=== PATIENT | male | born 1950 | race Caucasian/White ===

== ENCOUNTER 2017-03-04 17:45 | Emergency (ER) | payer BC ==
--- NOTE | 2017-03-04 18:39 | RAD ---
INDICATION: Urinary retention. COMPARISON: There are no prior studies available for comparison. TECHNIQUE: Multiple real-time images of the kidneys were obtained. FINDINGS: The kidneys are normal in size shape and echogenicity. The right kidney measured 11.5 x 5.9 x 5.5 cm and the left kidney measured 11.3 x 5.2 x 5.2 cm. No hydronephrosis is seen. There is a cyst arising from the upper pole of the right kidney measuring 3.2 x 1.6 cm in size. There is a second cyst arising from the lower pole of the right kidney measuring 4.6 x 4.4 cm in size. The urinary bladder is decompressed with a Villatoro catheter. IMPRESSION: 1. NO EVIDENCE FOR HYDRONEPHROSIS. 2. RIGHT RENAL CYSTS NOTED.
[2017-03-04] MEDS ORDERED: Tamsulosin CAP* 0.4 MG PO ONE (18:44)
[2017-03-04 19:03] LABS: Hematocrit 41 % (42-52); Hemoglobin 13.7 g/dl (14.0-18.0); Mean Corpuscular HGB Conc 34 g/dl (31-36); Mean Corpuscular Hemoglobin 31 pg (27-31); Mean Corpuscular Volume 92 fL (80-94); Mean Platelet Volume 9 um3 (7.4-10.4); Red Blood Count 4.41 10^6/ul (4.0-5.4); Red Cell Distribution Width 13 % (10.5-15); White Blood Count 12.1 10^3/ul (3.5-10.8)
[2017-03-04 19:05] LABS: Add Diff/Slide Review? Slide Review Added; Comments Flag Yes
[2017-03-04 19:31] LABS: BUN/Creatinine Ratio 18.3 (8-20); Calcium 9.1 mg/dL (8.6-10.3); EGFR African American 73.9 (>60); EGFR Non-African American 57.4 (>60); Globulin 2.9 g/dL (2-4); Potassium 3.7 mmol/L (3.5-5.0); Total Protein 6.9 g/dL (6.4-8.9)
[2017-03-04 20:18] LABS: Urine Bacteria Absent (Absent); Urine Bilirubin Negative (Negative); Urine Glucose Negative (Negative); Urine Nitrite Negative (Negative)
[2017-03-04] MEDS ORDERED: Sulfamethox/Trimethoprim DS 800/160* TAB PO ONE (20:26)
[2017-03-04] MEDS ORDERED: Ciprofloxacin TAB* 500 MG PO ONE (20:32)
[2017-03-04 20:55] VITALS: BP 125/77
--- NOTE | 2017-03-06 15:21 | ED ---
Nitin Sandoval SooYoung, scribed for Chai Jane MD on 03/04/17 at 1804 . GI/ HPI - HPI Summary HPI Summary: A 67 y/o M presents to ED with c/o urinary retention for past approx 16 hours. Pt notes that he's been having a difficult time starting to urinate. Denies fever, chills, dysuria, abd pain. 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 Pert PMHx: BPH. No history of kidney stones or prostate infection. Non-smoker, daily drinker. Denies daily medications. - History of Current Complaint Chief Complaint: EDUrogenitalProblems Time Seen by Provider: 03/04/17 18:03 Stated Complaint: UN ABLE TO URNIATE Hx Obtained From: Patient, Family/Patent Solicitor - present Onset/Duration: Started Hours Ago - approx 0200 last night, Still Present Timing: Constant Severity: Moderate Current Severity: Severe Pain Intensity: 9 - out of 10 Associated Signs and Symptoms: Positive: Other: - pos: urinary retention. Negative: Fever, Dysuria, Chills, Abdominal Pain - Allergy/Home Medications Allergies/Adverse Reactions: Allergies Allergy/AdvReac Type Severity Reaction Status Date / Time No Known Allergies Allergy Verified 03/04/17 17:50 PMH/Surg Hx/FS Hx/Imm Hx Previously Healthy: No History: Reports: Hx Benign Prostatic Hyperplasia Infectious Disease History: No Infectious Disease History: Denies: Traveled Outside the [place] in Last 30 Days - Social History Occupation: Employed Full-time Lives: With Family Alcohol Use: Daily Alcohol Amount: 2 beers daily Hx Substance Use: No Substance Use Type: Reports: None Hx Tobacco Use: No Smoking Status (MU): Never Smoked Tobacco Review of Systems Negative: Fever, Chills Negative: Erythema Negative: Sore Throat Negative: Chest Pain Negative: Shortness Of Breath, Cough Negative: Abdominal Pain, Diarrhea, Nausea Positive: other - pos: urinary retention. Negative: dysuria, hematuria Negative: Myalgia, Edema Negative: Rash Neurological: Other - neg: dizziness All Other Systems Reviewed And Are Negative: Yes Physical Exam - Summary Physical Exam Summary: Constitutional: Well-developed, Well-nourished, Alert. (-) Distressed Skin: Warm, Dry HENT: Normocephalic; Atraumatic Eyes: Conjunctiva normal Neck: Musculoskeletal ROM normal neck. (-) JVD, (-) Stridor, (-) Tracheal deviation Cardio: Rhythm regular, rate normal, Heart sounds normal; Intact distal pulses; The pedal pulses are 2+ and symmetric. Radial pulses are 2+ and symmetric. (-) Murmur Pulmonary/Chest wall: Effort normal. (-) Respiratory distress, (-) Wheezes, (-) Rales Abd: Soft, (-) Tenderness, (-) Distension, (-) Guarding, (-) Rebound Musculoskeletal: (-) Edema Lymph: (-) Cervical adenopathy Neuro: Alert, Oriented x3 Psych: Mood and affect Normal Triage Information Reviewed: Yes Vital Signs On Initial Exam: Initial Vitals Temp Pulse Resp BP Pulse Ox 97.7 F 78 24 163/89 100 03/04/17 17:46 03/04/17 17:46 03/04/17 17:46 03/04/17 17:46 03/04/17 17:46 Vital Signs Reviewed: Yes - Adamaris Coma Scale Coma Scale Total: 15 Diagnostics - Vital Signs Vital Signs Temp Pulse Resp BP Pulse Ox 03/04/17 17:49 97.8 F 78 22 163/89 100 03/04/17 17:46 97.7 F 78 24 163/89 100 - Laboratory Result Diagrams: 03/04/17 18:50 03/04/17 18:50 Lab Statement: Any lab studies that have been ordered have been reviewed, and results considered in the medical decision making process. - Ultrasound No standard instances Ultrasound Interpretation: Positive (See Comments) - IMPRESSION: 1. NO EVIDENCE FOR HYDRONEPHROSIS. 2. RIGHT RENAL CYSTS NOTED. Ultrasound Interpretation Completed By: Radiologist Re-Evaluation - Re-Evaluation 1 Re-Evaluation Time: 19:29 Change: Improved Comment: Discussing labs and U/S results with pt. 2 Re-Evaluation Time: 20:36 Change: Improved Comment: Discussing UA results with pt and , plans to D/C home with Karolyn Hernández. Pt expressed wanting his catheter taken out. Explained risks to pt and . Pt voiced understanding, but prefers it being taken out. GIGU Course/Dx - Course Course Of Treatment: Pt is a 67 y/o M presenting with urinary retention for past approx 16 hours. Pt notes that he's been having a difficult time starting to urinate. Denies fever, chills, dysuria, abd pain. 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 Pert PMHx: BPH. No history of kidney stones or prostate infection. Non-smoker, daily drinker. Denies daily medications. Villatoro cather placed while in ED. Per nurse' s note, pt voided 775 ml. Pt given Flomax, Bactrim, Cipro in ED. Renal U/S shows "IMPRESSION: 1. NO EVIDENCE FOR HYDRONEPHROSIS. 2. RIGHT RENAL CYSTS NOTED." UA shows specific gravity 1.004; 1+ protein, 1+ ketones, 3+ blood, 1+ WBC, 3+ RBC, and squamous epithelia present. Upon re-eval, pt states wanting the catheter removed. Discussed risks of sepsis, pylonephritis, bacterianium, disability, . Pt stills prefers catheter removed. Pt will sign AMA release for catheter removal. Will D/C home with Cipro, Flomax, f/u with Dr. Wayne, urology. - Diagnoses Provider Diagnoses: Urinary retention, Prostatitis, Renal insufficiency Discharge - Discharge Plan Condition: Stable Disposition: HOME Prescriptions: Ciprofloxacin-Ciprofloxacin Hc [Ciprofloxacin ER 500 mg] 1 tab PO BID #56 tab Tamsulosin CAP* [Flomax CAP*] 0.4 mg PO DAILY #14 cap Patient Education Materials: Ciprofloxacin (By mouth), Tamsulosin (By mouth), Prostatitis (ED), Urinary Retention in Men (ED), Villatoro Catheter Placement and Care (ED) Referrals: Non Staff,Doctor [Primary Care Provider] - [facility] [place] [facility] [Outside] Jame Wayne MD [Medical Doctor] - Additional Instructions: Follow up with Dr. Wayne, urology. Please return to the ED if you experience new or worsening symptoms. The documentation as recorded by the Nitin waggoner SooYoung accurately reflects the service I personally performed and the decisions made by me, Chai Jane MD.
== END 2017-03-04 21:02 | disposition home or self-care (01) ==
LOC: ED 17:45
DX: R33.9 Retention of urine, unspecified (principal); N41.9 Inflammatory disease of prostate, unspecified; N28.9 Disorder of kidney and ureter, unspecified
CPT/HCPCS: 36415; 76775; 80053; 81003; 81015; 85025; 99282; A9270-GY

== ENCOUNTER 2017-03-05 07:59 | Emergency (ER) | payer BC ==
[2017-03-05 08:08] VITALS: BP 120/78
--- NOTE | 2017-03-05 08:45 | UC ---
Complaint Male HPI - HPI Summary HPI Summary: PT W[place] [facility] [place] WITH 16 HOURS OF URINARY RETENTION/INABILITY TO VOID. HAD DIGGS CATH PLACED BUT INSISTED ON REMOVAL PRIOR TO D/C HOME. WAS TREATED FOR PROSTATITIS WITH CIPRO AND ALSO GIVEN FLOMAX WHICH PT HAS BEEN TAKING. SINCE DIGGS REMOVED YESTERDAY PT HAS NOT URINATED AT ALL. IS HERE REQUESTING NEW DIGGS BE INSERTED. - History of Current Complaint Chief Complaint: UCGU Stated Complaint: URINARY ISSUE Time Seen by Provider: 03/05/17 08:22 Hx Obtained From: Patient Onset/Duration: Gradual Onset, Lasting Days, Still Present Timing: Constant Severity Initially: Moderate Severity Currently: Moderate Pain Intensity: 0 Pain Scale Used: 0-10 Numeric Aggravating Factor(s): Nothing Alleviating Factor(s): Nothing - Allergies/Home Medications Allergies/Adverse Reactions: Allergies Allergy/AdvReac Type Severity Reaction Status Date / Time No Known Allergies Allergy Verified 03/04/17 17:50 PMH/Surg Hx/FS Hx/Imm Hx Other GI/ History: BPH - Surgical History Surgical History: None - Family History Family History: LUNG CANCER - DAD - Social History Alcohol Use: Daily Alcohol Amount: 2 beers daily Substance Use Type: None Smoking Status (MU): Never Smoked Tobacco Household Exposure Type: Cigarettes Review of Systems Constitutional: Negative Respiratory: Negative Cardiovascular: Negative Gastrointestinal: Negative Genitourinary: Other - URINARY RETENTION All Other Systems Reviewed And Are Negative: Yes Physical Exam Triage Information Reviewed: Yes Appearance: Well-Appearing, No Pain Distress, Well-Nourished Vital Signs: Initial Vital Signs Temp 98 F 03/05/17 08:05 Pulse 70 03/05/17 08:05 Resp 16 03/05/17 08:05 BP 120/78 03/05/17 08:05 Pulse Ox 100 03/05/17 08:05 Vital Signs Reviewed: Yes Eyes: Positive: Conjunctiva Clear ENT: Positive: Hearing grossly normal Neck: Positive: Supple Respiratory: Positive: No respiratory distress, No accessory muscle use Cardiovascular: Positive: Pulses Normal Abdomen Description: Positive: Nontender, Soft Musculoskeletal: Positive: No Edema Neurological: Positive: Alert Psychological: Positive: Age Appropriate Behavior Skin: Negative: rashes Complaint Male Course/Dx - Differential Dx/Diagnosis Provider Diagnoses: URINARY RETENTION Discharge - Discharge Plan Condition: Stable Disposition: HOME Patient Education Materials: Urinary Retention in Men (ED) Referrals: Jame Wayne MD [Medical Doctor] - Additional Instructions: DIGGS SUCCESSFULLY INSERTED. PT TO FOLLOW-UP WITH UROLOGY LENNIE. GO TO ER WITHOUT FAIL IF DIGGS BECOMES OBSTRUCTED, GROSS BLOOD IS DRAINING OR ANY OTHER CONCERNING SYMPTOMS DEVELOP. CONTINUE THE CIPRO AND FLOMAX PER ED INSTRUCTIONS. CALL THE NUMBER BELOW FOR ASSISTANCE IN ESTABLISHING WITH A PCP An additional resource available to assist in finding the appropriate physician for your health care needs is the [facility] ([facility]). You may contact them by calling [phone].
== END 2017-03-05 09:25 | disposition home or self-care (01) ==
LOC: UCEAST 07:59
DX: R33.9 Retention of urine, unspecified (principal)
CPT/HCPCS: 51702; 99212; G0463

== ENCOUNTER 2017-08-09 08:45 | Observation (INO) | payer BC, MEDICARE ==
--- NOTE | 2017-07-17 08:32 | HP ---
HISTORY AND PHYSICAL: DATE OF PLANNED ADMISSION AND SURGERY: 08/09/17 HISTORY OF PRESENT ILLNESS: Mr. Husain is a 67-year-old white male who is admitted with prostate enlargement, bladder outlet obstruction, for transurethral resection of prostate. I have been following Mr. Husain for several years because of symptoms of bladder outlet obstruction and prostate enlargement. Until 2013, he has been maintained on finasteride. The patient then discontinued his medications and I did not see him until 4 months ago when he presented to the emergency room with prostatitis and was noted to be in urinary retention of 1,000 cc. He had a Villatoro catheter inserted and was restarted on finasteride and placed on tamsulosin. He still had a large post void residual, and was placed on intermittent self-catheterization. He ultimately did well and he was able to void spontaneously with a postvoid residual of about 50 to 100 cc. The patient, however, continued to be significantly symptomatic from his voiding , having day frequency about every 2 hours, nocturia twice, slow stream, hesitancy, intermittency, and feeling of incomplete bladder emptying. He had recurrence of his urinary tract infection 1 month ago growing staph on his urine culture requiring a course of Keflex with good response and resolution of the uti. His PSA 2 months ago was normal at 1.7. The patient then underwent a cystoscopy, which showed a large obstructing prostate and heavy bladder trabeculations. No bladder calculi, diverticulae or bladder lesions were noted. He then had urodynamic studies, which showed a bladder capacity of 300 cc, a high voiding detrusor pressure of 110 cm of water, and his uroflowmetry was slow at a peak flow of 6 mL/sec and has an increased residual urine of about 200 cc. Because of the above history and finding and the persistent symptoms in spite of medical treatment, the patient is admitted for TURP. PAST MEDICAL HISTORY AND SYSTEM REVIEW: He is in very good health. He denies any cardiac or pulmonary diseases or symptoms. He has very good exercise tolerance. MEDICATIONS: He is on no other chronic medications. ALLERGIES: He denies any allergies to medications. FAMILY HISTORY: Negative for prostate carcinoma. PHYSICAL EXAMINATION GENERAL: Pleasant, healthy-looking white male, who looks good for his age. VITAL SIGNS: Blood pressure 120/80, pulse of 62, regular. LUNGS: Clear. HEART: Regular and rhythmic. No murmurs. ABDOMEN: Soft. No masses, no tenderness, no CVA tenderness. EXTERNAL GENITALIA: He is circumcised. No penile lesions. Normal testes and no hernias. RECTAL: large but non-suspicious prostate. IMPRESSION: Bladder outlet obstruction caused by prostate enlargement with history of urinary retention and urinary tract infection with persistent symptoms, on full medical treatment. PLAN: Is for transurethral resection of the prostate. I discussed the operation in detail with the patient. Some of the potential complications including infection, hematuria, small incidence of urinary incontinence and high incidence of retrograde ejaculation were discussed. All his questions were answered. [id number]/CPS #: [id number] MELISSAD
[~2017-08-09 08:45] MED LIST: Buffered Lidocaine 0.9% SYRIN* 5 ML/SYR SYRINGE INTRADERM ONE; Famotidine IV* 10 MG/ML 2 ML (20 mg) IV ONE; Metoclopramide TAB* 10 MG PO ONE
[2017-08-09] MEDS ORDERED: Buffered Lidocaine 0.9% SYRIN* 5 ML/SYR SYRINGE ONE (08:59)
[2017-08-09] MEDS ORDERED: Metoclopramide TAB* 10 MG ONE (08:59)
[2017-08-09] MEDS ORDERED: cefTRIAXone(*) 2 GM ADDV.VIAL IVPB ONE (08:59)
[2017-08-09] MEDS ORDERED: Famotidine IV* 10 MG/ML 2 ML (20 mg) ONE (08:59)
[2017-08-09] MEDS ORDERED: KETAMINE HCL* 50 MG/ML 10 ML VIAL ONE (09:36)
[2017-08-09] MEDS ORDERED: fentaNYL* 50 MCG/ML 2 ML VIAL (100 MCG VIAL) ONE (09:36)
[2017-08-09] MEDS ORDERED: Dexamethasone IV* 4 MG/ML 1 ML (4 MG) ONE (09:36)
[2017-08-09] MEDS ORDERED: Midazolam* 1 MG/ML 5 ML VIAL (5 MG) ONE (09:36)
[2017-08-09] MEDS ORDERED: Ondansetron INJ* 2 MG/ML VIAL ONE (09:36)
[2017-08-09] MEDS ORDERED: Lidocaine 2% PF * 5 ML VIAL ONE (09:36)
[2017-08-09] MEDS ORDERED: Propofol* 10 MG/ML 20 ML BTL IV PUSH ONE ×2 (09:36→11:46)
[2017-08-09] MEDS ORDERED: Fluorescein 10% INJ* 100 MG/ML AMP ONE (10:45)
[2017-08-09] MEDS ORDERED: Ondansetron INJ* 2 MG/ML VIAL IV PRN (11:08)
[2017-08-09] MEDS ORDERED: fentaNYL* 50 MCG/ML 2 ML VIAL (100 MCG VIAL) IV PRN (11:08)
[2017-08-09] MEDS ORDERED: HYDROmorphone INJ* 1 MG/ML CARPUJECT SYRINGE IV PRN (11:08)
[2017-08-09] MEDS ORDERED: oxyCODONE/Acetamin 5/325 MG* TAB PO PRN ×2 (15:11→15:12)
[2017-08-09] MEDS ORDERED: Oxybutynin TAB* 5 MG PO PRN (15:11)
[2017-08-09] MEDS ORDERED: Lidocaine 2% JELLY* 6 ML JELLY TOPICAL PRN (15:13)
--- NOTE | 2017-08-10 05:09 | OP ---
DATE OF OPERATION: 08/09/17 - ROOM #340 DATE OF : 54 SURGEON: Jame Wayne MD ANESTHESIOLOGIST: Dr. Elias Albarran. ANESTHESIA: Spinal. PRE-OP DIAGNOSES: 1. Benign prostatic hyperplasia. 2. Bladder outlet obstruction. POST-OP DIAGNOSES: 1. Benign prostatic hyperplasia. 2. Bladder outlet obstruction. OPERATIVE PROCEDURE: 1. Cystoscopy. 2. Transurethral resection of the prostate. INDICATIONS: Mr. Husain is a 67-year-old white male who had long history of bladder outlet obstruction and who developed urinary retention with about 1,000 cc associated with acute prostatitis about 4 months ago. He was managed with Villatoro catheter drainage and then intermittent self cath, and was started on tamsulosin and finasteride and the retention resolved. He however continued to be significantly symptomatic from his voiding. Cystoscopy and urodynamic studies showed a large obstructing prostate and high voiding detrusor pressure. Because of the persistent obstructive voiding symptoms, TURP was advised and accepted. PATHOLOGY AT CYSTOSCOPY: The penile and bulbar urethrae looked normal. The prostatic urethra measured about 4 cm in length and there was significant degree of obstruction by trilobar hyperplasia of the prostate. Examination of the bladder showed diffuse heavy trabeculations. There were no suspicious bladder lesions seen. No calculi or diverticula were noted. The ureteral orifices were rather close to the bladder neck and to the median lobe. DESCRIPTION OF PROCEDURE: After successful spinal anesthesia, the patient was placed in the lithotomy position and was prepped and draped for cystoscopy. Cystoscopy was performed and the bladder was carefully inspected and the above findings were noted. Because of the proximity of the ureteral orifices to the median lobe, the patient was given 0.5 cc of fluorescein for easier visualization of the orifices. The resectoscope was then introduced inside the bladder. Mannitol-sorbitol solution was used for irrigation and the inflow and outflow were adjusted to avoid overdistention of the bladder. The median lobe and the portion of the lateral lobes projecting inside the bladder neck were then resected circumferentially. The resectoscope was then positioned in the mid prostatic urethra and the resection of the adenoma was performed circumferentially. The resectoscope was then positioned just proximal to the veru and the resection of the left lateral lobe was performed starting at 5 o'clock and proceeding anteriorly. The right lobe was resected next. Additional resection was performed to adequately open the prostatic urethra. There was an unusual amount of obstructing anterior tissue that was resected. The bleeders were electrocoagulated and controlled. The ureteral orifices were periodically checked and were intact. The bladder was irrigated and the prostate chips were removed. At the end of the resection the prostatic urethra was wide open, although there was residual adenomatous tissue but it was nonobstructing. There was no capsular perforation and no open sinuses. The external sphincter, the veru, the capsule, the trigone and the orifices were all intact. After making sure there were no residual prostate chips remaining in the bladder and there was good hemostasis, the resectoscope was removed, and a size 22 German Villatoro catheter was passed inside the bladder and the balloon inflated with 40 cc of water. The catheter was then kept under gentle traction and taped to the right thigh of the patient. Irrigation yielded clear returns. The patient tolerated the procedure well and left the operating room in good condition. The blood loss was estimated at about 100 cc or less. The specimen was prostate chips. [id number]/[facility] #: [id number] [facility] CENTERCata
[2017-08-10] MEDS ORDERED: cefTRIAXone VIAL(*) 1,000 MG in D5W 50 ML BAG* 50 ML IVPB ONE (07:00)
[2017-08-10 08:13] VITALS: BP 125/54
--- NOTE | 2017-08-10 20:03 | DS ---
DISCHARGE SUMMARY: DATE OF ADMISSION: 08/09/17 DATE OF DISCHARGE: 08/10/17 FINAL DIAGNOSIS: Bladder Outlet Obstruction Benign Prostatic Hyperplasia SURGERY: Transurethral resection of the prostate on 08/09/17. HISTORY: Mr. Husain is a 67-year-old white male with long history of prostate enlargement and the bladder outlet obstruction, who presented to the emergency room 4 months ago with prostatitis and urinary retention of 1000 cc. He had a catheter placement and treated for the infection. He was then placed on intermittent self- catheterization. He ultimately did fine and was able to void spontaneously. However, he kept on having residual urine of about 100 cc. He has been maintained on tamsulosin and on finasteride and continued to be symptomatic with frequency, urgency, nocturia, and feeling of incomplete bladder emptying. He had another episode of urinary tract infection 1 month ago. His PSA was normal at 1.7. The patient had a workup for the bladder outlet obstruction with a cystoscopy, which showed a large obstructive prostate and urodynamic studies which showed high voiding detrusor pressure. Because of the above history, persistent symptoms, incomplete response to medical treatment, a TURP was advised and accepted. PAST MEDICAL HISTORY AND SYSTEM REVIEW: Completely negative. He is in very good health. MEDICATIONS: He is on no other medications. ALLERGIES: He has no allergies to medications. PHYSICAL EXAMINATION: Rectal exam showed a large, but nonsuspicious prostate. LABORATORY DATA: Preoperative lab work was all within normal. COURSE IN HOSPITAL: The patient was admitted the morning of his surgery. He underwent an uncomplicated transurethral resection of the prostate under spinal anesthesia. He was kept overnight for observation and by the morning, his urine was pink and he was having no symptoms. His vital signs were normal. Instructions were given for followup care. He is supposed to continue on the finasteride on the long-term basis to avoid regrowth of the prostate. I will see him in my office in 5 days for Villatoro catheter removal. Pathology showed benign prostate tissue, no malignancy. [id number]/CPS #: [id number] MTDD
== END 2017-08-10 09:55 | disposition home or self-care (01) ==
LOC: OR 08:45 → SSU 14:30
PROVIDERS: ADMIT Urology; ATTEND Urology
PROC: 0VT08ZZ Resection of Prostate, Via Natural or Artificial Opening Endoscopic (ICD-10-PCS; principal; 2017-08-09 10:45)
DX: N40.1 Benign prostatic hyperplasia with lower urinary tract symptoms (principal); N13.8 Other obstructive and reflux uropathy
CPT/HCPCS: 88305; 96365; A9270-GY; G0378; J0696; J1100; J2250; J2405; J2704; J3010